=== PATIENT | female | born 1985 | race Caucasian/White ===

== ENCOUNTER 2017-10-15 21:00 | Observation (INO) | payer OTHER ==
[~2017-10-15] VITALS: Ht 165.1 cm; Wt 89.4 kg
[2017-10-15 22:09] VITALS: BP 115/72
[2017-10-15] MEDS ORDERED: PREN1TAB80 PO (22:23)
[2017-10-15] MEDS ORDERED: CALC-1038 PO (22:24)
[2017-10-15] MEDS ORDERED: INFLUENZA VIRUS VACCINE QVS 2017-18 (3YR+)/PF 60 MCG/0.5 ML SYRINGE IM ONE (23:00)
== END 2017-10-16 00:25 | disposition home or self-care (01) ==
LOC: 4S 21:00
PROVIDERS: ADMIT Obstetrics & Gynecology; ATTEND Obstetrics & Gynecology
DX: O62.9 Abnormality of forces of labor, unspecified (principal); O48.0 Post-term pregnancy; O26.893 Other specified pregnancy related conditions, third trimester; R10.30 Lower abdominal pain, unspecified; Z3A.40 40 weeks gestation of pregnancy
CPT/HCPCS: 59025; 80307 ×8; G0378

== ENCOUNTER 2017-10-16 16:40 | Inpatient (IN) | payer OTHER ==
[~2017-10-16] VITALS: Ht 167.6 cm; Wt 90.0 kg
[~2017-10-16 16:40] MED LIST: CALC-1038 PO; PREN1TAB80 PO
[2017-10-16] MEDS ORDERED: RINGERS SOLUTION,LACTATED 1,000 ML IV PRN (16:54)
[2017-10-16] MEDS ORDERED: CITRIC ACID/SODIUM CITRATE 30 ML SOLUTION UDCUP PO PRN (17:00)
[2017-10-16] MEDS ORDERED: METOCLOPRAMIDE HCL 5 MG/ML 2 ML VIAL IVP PRN (17:00)
[2017-10-16] MEDS ORDERED: AMPICILLIN SODIUM 2 GM/NS 100 ML IV ONE (17:00)
[2017-10-16 17:19] VITALS: BP 133/62
[2017-10-16 17:39] LABS: BASOPHILS # (AUTO) 0.03 K/uL (0.00-0.20); BASOPHILS % (AUTO) 0.3 % (0.0-2.0); EOSINOPHILS # (AUTO) 0.06 K/uL (0.00-0.70); EOSINOPHILS % (AUTO) 0.59 % (1.0-6.0); HEMATOCRIT 38.5 % (36-46); HEMOGLOBIN 12.6 g/dL (12.0-16.0); LYMPHOCYTES # (AUTO) 1.5 K/uL (1.0-4.8); LYMPHOCYTES % (AUTO) 14.9 % (22.0-44.0); MEAN CORPUSCULAR HEMOGLOBIN 27.8 pg (26.0-34.0); MEAN CORPUSCULAR HGB CONC 32.8 G/dL (31.0-37.0); MEAN CORPUSCULAR VOLUME 85 fL (80-100); MONOCYTES # (AUTO) 0.7 K/uL (0.1-1.0); MONOCYTES % (AUTO) 6.7 % (2.0-9.0); NEUTROPHILS # (AUTO) 7.7 K/uL (1.8-7.7); NEUTROPHILS % (AUTO) 77.5 % (40.0-70.0); RED BLOOD CELL COUNT(AUTO) 4.54 MIL/uL (4.00-5.20); RED CELL DISTRIBUTION WIDTH 13.6 % (11.5-14.5)
[2017-10-16] MEDS ORDERED: OXYGEN THERAPY IH SCH (20:00)
[2017-10-16] MEDS ORDERED: INFLUENZA VIRUS VACCINE QVS 2017-18 (3YR+)/PF 60 MCG/0.5 ML SYRINGE IM ONE (20:15)
[2017-10-16] MEDS: AMPICILLIN SODIUM 1 GM/NS 50 ML IV SCH (21:55)
[2017-10-16] MEDS: RINGERS SOLUTION,LACTATED 1,000 ML IV SCH (23:48)
[2017-10-17] MEDS: AMPICILLIN SODIUM 1 GM/NS 50 ML IV SCH ×6 (01:58→22:30)
[2017-10-17] MEDS ORDERED: DINOPROSTONE 10 MG VAGINAL SUPPOSITORY VG ONE (03:15)
[2017-10-17] MEDS: RINGERS SOLUTION,LACTATED 1,000 ML IV SCH ×3 (06:13→21:26)
[2017-10-17] MEDS ORDERED: LIDOCAINE HCL/PF 1% 30 ML VIAL INJ PRN (07:30)
[2017-10-17] MEDS: FentaNYL CITRATE-PF 100 MCG/2 ML VIAL IVP PRN ×2 (07:47→13:47)
[2017-10-17] MEDS ORDERED: -PHARMACY NOTE- MISC ONE ×2 (15:15)
[2017-10-17] MEDS ORDERED: OXYTOCIN 30 UNITS/LACT RINGERS 500 ML IV PRN (16:15)
[2017-10-17] MEDS: MISOPROSTOL 25 MCG TABLET VG SCH ×2 (17:12→21:21)
[2017-10-17] MEDS ORDERED: MISOPROSTOL 25 MCG TABLET VG SCH ×2 (20:00)
[2017-10-18] MEDS: RINGERS SOLUTION,LACTATED 1,000 ML IV SCH ×4 (01:22→23:52)
[2017-10-18] MEDS: MISOPROSTOL 25 MCG TABLET VG SCH (02:29)
[2017-10-18] MEDS: AMPICILLIN SODIUM 1 GM/NS 50 ML IV SCH (02:30)
[2017-10-18] MEDS ORDERED: MORPHINE SULFATE/PF 1 MG/ML 10 ML AMP ONE (03:57)
[2017-10-18] MEDS ORDERED: CeFAZolin 2 GM/DEXTROSE 50 ML IV ONE (03:57)
[2017-10-18] MEDS ORDERED: FentaNYL CITRATE-PF 100 MCG/2 ML VIAL ONE (03:57)
[2017-10-18] MEDS ORDERED: PROMETHAZINE HCL 12.5 MG in SODIUM CHLORIDE 0.9% 50 ML IV PRN (05:30)
[2017-10-18] MEDS ORDERED: ONDANSETRON HCL 4 MG/2 ML VIAL IVP PRN ×2 (05:30→07:15)
[2017-10-18] MEDS ORDERED: MEPERIDINE-PF 25 MG/ML SYRINGE IVP PRN (05:30)
[2017-10-18] MEDS ORDERED: DEXAMETHASONE SOD PHOS 4 MG/ML VIAL IVP PRN (05:30)
[2017-10-18] MEDS ORDERED: NALBUPHINE HCL 10 MG/ML VIAL IVP PRN (05:30)
[2017-10-18] MEDS ORDERED: OXYTOCIN 30 UNITS/LACT RINGERS 500 ML IV ONE (06:47)
[2017-10-18] MEDS ORDERED: LANOLIN 7 GM OINTMENT TP PRN (07:00)
[2017-10-18] MEDS ORDERED: OxyCODONE HCL/ACETAMINOPHEN 5-325 MG TABLET PO PRN (07:00)
[2017-10-18] MEDS ORDERED: DiphenhydrAMINE HCL 50 MG/ML VIAL IVP PRN (07:15)
[2017-10-18] MEDS ORDERED: NALOXONE HCL 0.4 MG/ML VIAL IVP PRN (07:15)
[2017-10-18] MEDS ORDERED: FentaNYL CITRATE-PF 100 MCG/2 ML VIAL IVP PRN ×3 (07:15)
[2017-10-18] MEDS ORDERED: NALBUPHINE HCL 10 MG/ML VIAL IVP SCH (08:00)
[2017-10-18] MEDS: MAGNESIUM HYDROXIDE SUSPENSION 30 ML UDCUP PO SCH ×2 (09:00→20:59)
[2017-10-18] MEDS: KETOROLAC TROMETHAMINE 30 MG/ML VIAL IVP SCH ×2 (11:32→17:03)
[2017-10-18] MEDS: NALBUPHINE HCL 10 MG/ML VIAL IVP SCH ×2 (14:22→20:27)
[2017-10-19] MEDS ORDERED: DEXAMETHASONE SOD PHOS 4 MG/ML VIAL IVP ONE (00:35)
[2017-10-19] MEDS ORDERED: OXYTOCIN 10 UNITS/ML VIAL IM ONE (00:35)
[2017-10-19] MEDS ORDERED: EPHEDrine SULFATE 50 MG/ML VIAL IM ONE (00:35)
[2017-10-19] MEDS ORDERED: 0.9% SODIUM CHLORIDE 10 ML VIAL IVP ONE (00:35)
[2017-10-19] MEDS ORDERED: ONDANSETRON HCL 4 MG/2 ML VIAL IVP ONE (00:35)
[2017-10-19] MEDS ORDERED: KETOROLAC TROMETHAMINE 60 MG/2 ML VIAL IM ONE (00:35)
[2017-10-19] MEDS ORDERED: PHENYLEPHRINE HCL 10 MG/ML VIAL IVP ONE (00:35)
[2017-10-19] MEDS ORDERED: LABETALOL HCL 5 MG/ML 20 ML VIAL IVP ONE (00:35)
[2017-10-19] MEDS: NALBUPHINE HCL 10 MG/ML VIAL IVP SCH (02:31)
[2017-10-19] MEDS: OxyCODONE HCL/ACETAMINOPHEN 5-325 MG TABLET PO PRN (03:02)
[2017-10-19 05:57] LABS: BASOPHILS % (AUTO) 0.4 % (0.0-2.0); EOSINOPHILS % (AUTO) 0.2 % (1.0-6.0); HEMATOCRIT 28.9 % (36-46); HEMOGLOBIN 9.7 g/dL (12.0-16.0); LYMPHOCYTES # (AUTO) 2.1 K/uL (1.0-4.8); MEAN CORPUSCULAR HEMOGLOBIN 28.3 pg (26.0-34.0); MEAN CORPUSCULAR HGB CONC 33.4 G/dL (31.0-37.0); MEAN CORPUSCULAR VOLUME 85 fL (80-100); MONOCYTES # (AUTO) 0.9 K/uL (0.1-1.0); MONOCYTES % (AUTO) 8.6 % (2.0-9.0); NEUTROPHILS # (AUTO) 7.9 K/uL (1.8-7.7); NEUTROPHILS % (AUTO) 71.8 % (40.0-70.0); RED BLOOD CELL COUNT(AUTO) 3.42 MIL/uL (4.00-5.20); RED CELL DISTRIBUTION WIDTH 13.9 % (11.5-14.5)
[2017-10-19] MEDS: IBUPROFEN 800 MG TABLET PO PRN ×2 (15:24→23:37)
[2017-10-19] MEDS: MAGNESIUM HYDROXIDE SUSPENSION 30 ML UDCUP PO SCH (21:00)
[2017-10-20] MEDS: IBUPROFEN 800 MG TABLET PO PRN (08:16)
[2017-10-20] MEDS: OxyCODONE HCL/ACETAMINOPHEN 5-325 MG TABLET PO PRN (15:10)
[2017-10-20] MEDS ORDERED: IBUP-2071 PO (15:45)
[2017-10-20] MEDS ORDERED: FERR-89 PO (15:46)
== END 2017-10-20 18:25 | disposition home or self-care (01) | DRG 766 ==
LOC: OBSVTOIN 16:40 → 4S 16:40
PROVIDERS: ADMIT Obstetrics & Gynecology; ATTEND Obstetrics & Gynecology
PROC: 10D00Z1 Extraction of Products of Conception, Low, Open Approach (ICD-10-PCS; principal; 2017-10-18)
DX: O34.211 Maternal care for low transverse scar from previous cesarean delivery (principal); Z28.21 Immunization not carried out because of patient refusal; Z37.0 Single live birth; Z3A.40 40 weeks gestation of pregnancy
CPT/HCPCS: 76805; 80307; 86592; 86762; 86850; 86900; 86901; 87340; J0290; J0690; J1100; J1885; J2300; J2370; J2405; J2590; J2765; J3010; J3490; J7120

== ENCOUNTER 2020-01-30 08:50 | Inpatient (IN) | payer OTHER ==
[~2020-01-30] VITALS: Ht 165.1 cm; Wt 94.0 kg
[~2020-01-30 08:50] MED LIST changes: +CITRIC ACID/SODIUM CITRATE 30 ML SOLUTION UDCUP PO ONE; +FERR-89 PO; +IBUP-2071 PO; +METOCLOPRAMIDE HCL 5 MG/ML 2 ML VIAL IVP ONE; +RINGERS SOLUTION,LACTATED 1,000 ML IV ONE
[2020-01-30 09:38] VITALS: BP 126/72
[2020-01-30 10:05] LABS: BASOPHILS % (AUTO) 0.6 % (0.0-2.0); EOSINOPHILS % (AUTO) 1.2 % (1.0-6.0); HEMOGLOBIN 11.2 g/dL (12.0-16.0); LYMPHOCYTES # (AUTO) 1.4 K/uL (1.0-4.8); LYMPHOCYTES % (AUTO) 23.4 % (22.0-44.0); MEAN CORPUSCULAR HGB CONC 32.8 G/dL (31.0-37.0); MEAN CORPUSCULAR VOLUME 82 fL (80-100); MONOCYTES # (AUTO) 0.5 K/uL (0.1-1.0); MONOCYTES % (AUTO) 8.1 % (2.0-9.0); NEUTROPHILS # (AUTO) 3.9 K/uL (1.8-7.7); NEUTROPHILS % (AUTO) 66.7 % (40.0-70.0); PLATELET COUNT (AUTO) 184 K/uL (150-450); RED BLOOD CELL COUNT(AUTO) 4.13 MIL/uL (4.00-5.20); RED CELL DISTRIBUTION WIDTH 15.4 % (11.5-14.5)
[2020-01-30] MEDS ORDERED: CeFAZolin 2 GM/DEXTROSE 50 ML IV ONE (10:39)
[2020-01-30] MEDS ORDERED: FentaNYL CITRATE-PF 100 MCG/2 ML VIAL ONE (10:39)
[2020-01-30] MEDS ORDERED: ACETAMINOPHEN 1000 MG/ISO-OSM 100 ML IV ONE (10:40)
[2020-01-30] MEDS ORDERED: MORPHINE SULFATE/PF 1 MG/ML 10 ML AMP ONE (10:40)
[2020-01-30] MEDS ORDERED: MORPHINE SULFATE/PF 0.5 MG/ML 10 ML AMP ONE (10:42)
[2020-01-30] MEDS ORDERED: ONDANSETRON HCL 4 MG/2 ML VIAL IVP PRN ×2 (11:45)
[2020-01-30] MEDS ORDERED: INFLUENZA VIRUS VACCINE QVS 2019-20 (3YR+)/PF 60 MCG/0.5 ML SYRINGE IM ONE (11:45)
[2020-01-30] MEDS ORDERED: MORPHINE SULFATE 10 MG/ML SYRINGE IVP PRN (11:45)
[2020-01-30] MEDS ORDERED: MEPERIDINE-PF 25 MG/ML VIAL IVP PRN (11:45)
[2020-01-30] MEDS ORDERED: NALBUPHINE HCL 10 MG/ML VIAL IVP PRN ×3 (11:45)
[2020-01-30] MEDS ORDERED: NALOXONE HCL 0.4 MG/ML VIAL IVP PRN (11:45)
[2020-01-30] MEDS ORDERED: DiphenhydrAMINE HCL 50 MG/ML VIAL IVP PRN ×2 (11:45)
[2020-01-30] MEDS ORDERED: FentaNYL CITRATE-PF 100 MCG/2 ML VIAL IVP PRN ×2 (11:45)
[2020-01-30] MEDS ORDERED: ONDANSETRON HCL 4 MG/2 ML VIAL IVP ONE (12:00)
[2020-01-30] MEDS ORDERED: KETOROLAC TROMETHAMINE 60 MG/2 ML VIAL IM ONE (12:00)
[2020-01-30] MEDS ORDERED: DEXAMETHASONE SOD PHOS 4 MG/ML VIAL IVP ONE (12:00)
[2020-01-30] MEDS ORDERED: PHENYLEPHRINE HCL 10 MG/ML VIAL IVP ONE (12:00)
[2020-01-30] MEDS ORDERED: ACETAMINOPHEN/CODEINE 300-30 MG TABLET PO PRN ×2 (12:15)
[2020-01-30] MEDS ORDERED: LANOLIN 7 GM OINTMENT TP PRN (12:15)
[2020-01-30] MEDS ORDERED: DEXTROSE 5%-0.45% SODIUM CHL 1,000 ML IV ONE (12:30)
[2020-01-30] MEDS: DEXTROSE 5%-0.45% SODIUM CHL 1,000 ML IV SCH ×4 (12:32→23:28)
[2020-01-30] MEDS: KETOROLAC TROMETHAMINE 30 MG/ML VIAL IVP SCH ×2 (17:56→23:35)
[2020-01-30] MEDS: ACETAMINOPHEN 1000 MG/ISO-OSM 100 ML IV SCH (18:48)
[2020-01-30] MEDS ORDERED: OXYGEN THERAPY IH SCH ×2 (20:00)
[2020-01-31] MEDS: ACETAMINOPHEN 1000 MG/ISO-OSM 100 ML IV SCH (02:36)
[2020-01-31] MEDS: IBUPROFEN 800 MG TABLET PO SCH ×4 (05:46→23:25)
[2020-01-31] MEDS: MAGNESIUM HYDROXIDE SUSPENSION 30 ML UDCUP PO SCH (20:55)
[2020-02-01] MEDS: IBUPROFEN 800 MG TABLET PO SCH ×3 (06:21→17:47)
[2020-02-01] MEDS: MAGNESIUM HYDROXIDE SUSPENSION 30 ML UDCUP PO SCH ×2 (08:55→20:54)
[2020-02-02] MEDS: IBUPROFEN 800 MG TABLET PO SCH ×2 (00:06→06:07)
== END 2020-02-02 11:40 | disposition home or self-care (01) | DRG 788 ==
LOC: 4S 08:50 → PREOBSVTOIN 03-16 09:00
PROVIDERS: ADMIT Obstetrics & Gynecology; ATTEND Obstetrics & Gynecology
PROC: 10D00Z1 Extraction of Products of Conception, Low, Open Approach (ICD-10-PCS; principal; 2020-01-30)
DX: O34.211 Maternal care for low transverse scar from previous cesarean delivery (principal); O69.81X0 Labor and delivery complicated by cord around neck, without compression, not applicable or unspecified; Z3A.39 39 weeks gestation of pregnancy; Z37.0 Single live birth
CPT/HCPCS: 86850; 86900; 86901; 87081; 94760; J0131; J0690; J1100; J1885; J2274; J2370; J2405; J2765; J3010